=== PATIENT | male | born 1995 | race Caucasian/White ===

== ENCOUNTER 2024-08-25 11:15 | Emergency (ER) | payer BC ==
[~2024-08-25] VITALS: Ht 172.7 cm; Wt 176.9 kg
[2024-08-25] MEDS ORDERED: OSEL75CA PO (11:30)
[2024-08-25 11:47] VITALS: BP 133/74; TEMP 98.1; O2SAT 98
== END 2024-08-25 11:48 | disposition home or self-care (01) ==
LOC: ER 11:43
DX: B34.9 Viral infection, unspecified (principal); R09.81 Nasal congestion; R68.83 Chills (without fever); I10 Essential (primary) hypertension; J02.8 Acute pharyngitis due to other specified organisms; E11.9 Type 2 diabetes mellitus without complications; Z20.822 Contact with and (suspected) exposure to COVID-19